=== PATIENT | female | born 1975 | race African-American/Black ===

== ENCOUNTER 2017-01-11 12:42 | Emergency (ER) | payer MEDICAID ==
[~2017-01-11] VITALS: Ht 160 cm; Wt 90.7 kg
[2017-01-11 13:06] VITALS: BP 141/96
== END 2017-01-11 13:53 | disposition left against medical advice (07) ==
LOC: ER 12:42
DX: R51 Headache (principal); Z53.21 Procedure and treatment not carried out due to patient leaving prior to being seen by health care provider